=== PATIENT | female | born 1990 ===

== ENCOUNTER 2017-07-28 22:20 | Emergency (ER) | payer OTHER ==
[~2017-07-28] VITALS: Ht 165.1 cm; Wt 63.5 kg
[~2017-07-28 22:20] MED LIST: AMOX1TAB12 PO; CARAFATE SU1 G/10 ML PO; CIPRO500 MG PO; FLAGYL PO; INTESTINEX1 CA1 PO; NORTUSS-D.E. S118 ML PO; PEPCID40 MG PO; PHENERGAN25 MG PO; PREVACID30 MG PO
[2017-07-29] MEDS ORDERED: PEPCID40 MG PO (08:10)
[2017-07-29] MEDS ORDERED: ZOFRAN4 MG PO (08:10)
== END 2017-07-29 08:27 | disposition home or self-care (01) ==
LOC: ER 22:20
DX: K29.70 Gastritis, unspecified, without bleeding (principal)

== ENCOUNTER 2017-08-23 09:42 | Emergency (ER) | payer OTHER ==
[~2017-08-23] VITALS: Ht 162.6 cm; Wt 68.0 kg
[~2017-08-23 09:42] MED LIST changes: +ZOFRAN4 MG PO
== END 2017-08-23 13:49 | disposition home or self-care (01) ==
LOC: ER 09:42
DX: K29.00 Acute gastritis without bleeding (principal)